=== PATIENT | male | born 1970 | race Caucasian/White ===

== ENCOUNTER 2023-11-04 04:08 | Day surgery (SDC) | payer OTHER ==
[2023-11-02 14:53] VITALS: BMI 25.0
[2023-11-04] MEDS ORDERED: FENTANYL CITRATE/PF 50 MCG/ML VIAL ONE ×5 (07:06→11:48)
[2023-11-04] MEDS ORDERED: MIDAZOLAM HCL 2 MG/2 ML SINGLE DOSE VIAL ONE (07:07)
[2023-11-04] MEDS ORDERED: PROPOFOL 20 ML ONE ×2 (07:07→10:17)
[2023-11-04] MEDS ORDERED: VANCOMYCIN 1,000 MG VIAL (RESTRICTED TO ID ONLY) ONE ×3 (07:14→09:18)
[2023-11-04] MEDS ORDERED: BUPIVACAINE HCL/PF 0.5% (5MG/ML) 10 ML VIAL ONE (07:14)
[2023-11-04] MEDS ORDERED: GENTAMICIN SO4 80 MG/2 ML VIAL ONE ×3 (07:14→09:18)
[2023-11-04] MEDS ORDERED: LIDOCAINE HCL 1%, 10 MG/ML (20ML VIAL) ONE (07:14)
[2023-11-04] MEDS: VANCOMYCIN 1 GM in NS (PRE-DOCKED) 1,000 MG/250 ML (RESTRICTED TO ID ONLY) IVPB ONE (07:40)
[2023-11-04] MEDS: GENTAMICIN 80MG PREMIX BAG IVPB ONE (07:40)
[2023-11-04] MEDS: ceFAZolin SODIUM 1 GM VIAL IVPB ONE (08:02)
[2023-11-04] MEDS ORDERED: DEXAMETHASONE SOD PHOSPHATE 4 MG/1 ML VIAL ONE (08:08)
[2023-11-04] MEDS ORDERED: ceFAZolin SODIUM 1 GM VIAL ONE (08:08)
[2023-11-04] MEDS ORDERED: KETOROLAC TROMETHAMINE 30 MG/1 ML VIAL ONE (08:08)
[2023-11-04] MEDS ORDERED: ONDANSETRON 4 MG/2 ML VIAL ONE ×2 (08:08→14:04)
[2023-11-04] MEDS ORDERED: HYDROmorphone HCl 2 MG/ML VIAL ONE (08:40)
[2023-11-04] MEDS: LIDOCAINE HCL 1%, 10 MG/ML (20ML VIAL) NR ONE (10:22)
[2023-11-04] MEDS: BUPIVACAINE HCL/PF 0.5% (5 MG/ML) 30 ML VIAL IJ ONE (10:22)
[2023-11-04] MEDS ORDERED: ACETAMINOPHEN INJECTION 100 ML IVPB ONE (10:55)
[2023-11-04] MEDS: ACETAMINOPHEN 1000 MG/100 ML BAG IVPB ONE ×2 (10:57→13:16)
[2023-11-04] MEDS ORDERED: LACTATED RINGERS SOLUTION 1,000 ML IV SCH (11:00)
[2023-11-04] MEDS: ONDANSETRON 4 MG/2 ML VIAL IVPUSH PRN (14:03)
[2023-11-04 14:28] VITALS: RESP 20; TEMP 98.6
[2023-11-04] MEDS: oxyCODONE HCL 5 MG TABLET PO PRN (15:51)
[2023-11-04] MEDS ORDERED: oxyCODONE HCL 5 MG TABLET ONE (15:54)
[2023-11-04 17:18] VITALS: BP 118/65; PULSE 70
== END 2023-11-04 16:18 | disposition home or self-care (01) ==
LOC: JASU-SURG 04:08
PROVIDERS: ATTEND Urology
PROC: 0VUS0JZ Supplement Penis with Synthetic Substitute, Open Approach (ICD-10-PCS; 2023-11-04)
PROC: 0VPS0JZ Removal of Synthetic Substitute from Penis, Open Approach (ICD-10-PCS; principal; 2023-11-04 07:30)
DX: T83.410A Breakdown (mechanical) of implanted penile prosthesis, initial encounter (principal); Y82.8 Other medical devices associated with adverse incidents; Y92.9 Unspecified place or not applicable; Y83.8 Other surgical procedures as the cause of abnormal reaction of the patient, or of later complication, without mention of misadventure at the time of the procedure
CPT/HCPCS: 54410; C1813; 88300-TC; 88304-TC; 94760; C2622; J0131

== ENCOUNTER 2024-04-24 04:18 | Day surgery (SDC) | payer OTHER ==
[2024-04-20 16:14] VITALS: BMI 24.4
[2024-04-24 10:31] VITALS: RESP 16
[2024-04-24 11:53] LABS: INR 1.1 (0.83-1.09); PROTHROMBIN TIME (PATIENT) 12.6 SEC (9.7-13.0)
[2024-04-24] MEDS ORDERED: VANCOMYCIN 1,000 MG VIAL (RESTRICTED TO ID ONLY) ONE ×2 (11:59→13:25)
[2024-04-24] MEDS ORDERED: GENTAMICIN SO4 80 MG/2 ML VIAL ONE ×2 (11:59→13:25)
[2024-04-24] MEDS ORDERED: GENTAMICIN SO4 80 MG/2 ML VIAL IVPB ONE (12:15)
[2024-04-24] MEDS ORDERED: GENTAMICIN 80MG PREMIX BAG IVPB ONE (12:15)
[2024-04-24] MEDS ORDERED: VANCOMYCIN/WATER FOR INJ (PEG) 1,000 MG/200 ML BAG IVPB ONE (12:15)
[2024-04-24] MEDS: GENTAMICIN 80MG PREMIX BAG IVPB ONE (12:27)
[2024-04-24] MEDS: VANCOMYCIN 1,000 MG VIAL (RESTRICTED TO ID ONLY) IVPB ONE (12:27)
[2024-04-24] MEDS ORDERED: PROPOFOL 40 ML ONE (13:25)
[2024-04-24] MEDS ORDERED: LIDOCAINE HCL/PF 2% SDV 5ML VIAL ONE (13:26)
[2024-04-24] MEDS ORDERED: ONDANSETRON 4 MG/2 ML VIAL ONE ×2 (13:26→17:52)
[2024-04-24] MEDS ORDERED: DEXAMETHASONE SOD PHOSPHATE 4 MG/1 ML VIAL ONE (13:27)
[2024-04-24] MEDS ORDERED: ceFAZolin SODIUM 1 GM VIAL ONE (13:28)
[2024-04-24] MEDS ORDERED: MIDAZOLAM HCL 2 MG/2 ML SINGLE DOSE VIAL ONE (13:32)
[2024-04-24] MEDS ORDERED: ACETAMINOPHEN INJECTION 100 ML ONE (13:36)
[2024-04-24] MEDS ORDERED: PROMETHAZINE HCL 25 MG/1 ML VIAL IVPB PRN (13:50)
[2024-04-24] MEDS ORDERED: oxyCODONE HCL 5 MG TABLET PO PRN (13:50)
[2024-04-24] MEDS ORDERED: LACTATED RINGERS SOLUTION 1,000 ML IV SCH (14:00)
[2024-04-24] MEDS: ceFAZolin 2 GRAM PREMIX BAG IVPB ONE ×2 (14:20)
[2024-04-24] MEDS ORDERED: LIDOCAINE HCL 1%, 10 MG/ML (20ML VIAL) ONE (15:59)
[2024-04-24] MEDS: LIDOCAINE HCL 1%, 10 MG/ML (20ML VIAL) INF ONE (16:02)
[2024-04-24] MEDS: ONDANSETRON 4 MG/2 ML VIAL IVPUSH PRN (17:56)
[2024-04-24 18:50] VITALS: TEMP 97
[2024-04-24 20:18] VITALS: BP 127/74; PULSE 73
== END 2024-04-24 20:20 | disposition home or self-care (01) ==
LOC: JASU-SURG 04:18
PROVIDERS: ATTEND Urology
PROC: 0VPS0JZ Removal of Synthetic Substitute from Penis, Open Approach (ICD-10-PCS; 2024-04-24)
PROC: 0VUS0JZ Supplement Penis with Synthetic Substitute, Open Approach (ICD-10-PCS; principal; 2024-04-24 12:30)
DX: T83.490A Other mechanical complication of implanted penile prosthesis, initial encounter (principal)
CPT/HCPCS: 54410; C1813; 36415; 85610; 86850; 86900; 86901; 94760; J0131